=== PATIENT | female | born 1985 | race Caucasian/White ===

== ENCOUNTER 2022-08-15 02:12 | Inpatient (IN) | payer MEDICAID ==
[~2022-08-15] VITALS: Ht 157.5 cm; Wt 49.0 kg
[2022-08-15] MEDS ORDERED: SODIUM CHLORIDE 0.9% 1,000 ML IV ONE ×2 (02:45→13:30)
[2022-08-15] MEDS ORDERED: PIPERACILLIN/TAZ 3.375G PREMIX 50 ML IV ONE (02:45)
[2022-08-15] MEDS ORDERED: VANCOMYCIN 1G PREMIX 200 ML IV ONE (02:45)
[2022-08-15 03:29] LABS: CLARITY URINE TURBID (CLEAR); COLOR URINE YELLOW (YELLOW); KETONES URINE TRACE (NEGATIVE); LEUKOCYTE ESTERASE URINE 3+ (NEGATIVE); NITRITE URINE NEGATIVE (NEGATIVE); OCCULT BLOOD URINE 3+ (NEGATIVE); PROTEIN URINE 2+ (NEGATIVE)
[2022-08-15 03:34] LABS: HEMATOCRIT. 37.3 % (36.0-48.0); HEMOGLOBIN. 10.7 g/dL (12.0-16.0); MEAN CORPUSCULAR HEMOGLOBIN 24.8 pg (28.0-32.0); MEAN PLATELET VOLUME 5.9 fl (7.4-10.4); PLATELET 533 x1000/uL (130-400); RED BLOOD CELL COUNT 4.33 mill/uL (4.2-5.4); RED CELL DISTRIBUTION WIDTH 21.2 % (11.6-14.6)
[2022-08-15 03:42] LABS: INR 1.2; PROTHROMBIN TIME 12.9 sec (9.6-11.0)
[2022-08-15 03:49] LABS: *AMPHETAMINES SCREEN URINE NEGATIVE (NEGATIVE); *BARBITURATES SCREEN URINE NEGATIVE (NEGATIVE); *BENZODIAZEPINES SCREEN URINE NEGATIVE (NEGATIVE); *COCAINE SCREEN URINE NEGATIVE (NEGATIVE); CANNABINOID URINE SCREEN NEGATIVE (NEGATIVE); METHADONE URINE SCREEN NEGATIVE (NEGATIVE); PHENCYCLIDINE URINE SCREEN NEGATIVE (NEGATIVE)
[2022-08-15 03:50] LABS: OPIATES URINE SCREEN PRESUMTIVE POSITIVE (NEGATIVE)
[2022-08-15] MEDS ORDERED: SODIUM CHLORIDE 0.9% 1000ML BAG (SEPSIS BOLUS) IV ONE ×2 (04:00→12:45)
[2022-08-15] MEDS ORDERED: KETOROLAC 15MG/ML VIAL IV ONE (04:00)
[2022-08-15 04:06] LABS: CHLORIDE 103 mEq/L (98-107)
[2022-08-15 04:15] LABS: ETHANOL BLOOD < 10 mg/dL
[2022-08-15 06:16] LABS: PLATELET ESTIMATE INCREASED
[2022-08-15] MEDS ORDERED: ONDANSETRON HCL 4MG/2ML INJ IV PRN (07:30)
[2022-08-15] MEDS ORDERED: ACETAMINOPHEN 325MG TABLET PO PRN ×2 (12:45)
[2022-08-15] MEDS ORDERED: IPRATROPIUM/ALBUTEROL 0.5-3(2.5)MG/3ML NEB HHN PRN (12:45)
[2022-08-15] MEDS ORDERED: NOREPINEPHRINE 32 MG in DEXT 5% WATER 218 ML IV PRN (12:45)
[2022-08-15] MEDS ORDERED: DOCUSATE SODIUM 100MG CAPSULE PO PRN (12:45)
[2022-08-15] MEDS ORDERED: LORAZEPAM 0.5MG TABLET PO PRN (12:45)
[2022-08-15] MEDS ORDERED: CLONIDINE 0.1MG TABLET PO PRN (12:45)
[2022-08-15] MEDS ORDERED: SODIUM CHLORIDE 0.9% 1,000 ML IV SCH (12:45)
[2022-08-15] MEDS: HYDROCODONE/ACETAMINOPHEN 5/325MG TABLET PO PRN ×2 (13:14→19:43)
[2022-08-15] MEDS ORDERED: ALBUMIN HUMAN 12.5G/250ML (5%) IV PRN (13:45)
[2022-08-15] MEDS ORDERED: PIPERACILLIN/TAZOBACTAM 3.375 G in DEXTROSE 5% WATER 50 ML IV SCH (14:00)
[2022-08-15 16:57] VITALS: BP 114/69
[2022-08-15 17:06] VITALS: BP 104/72
[2022-08-15 18:00] VITALS: BP 114/60
[2022-08-15 20:00] VITALS: BP 103/64
[2022-08-15] MEDS: SODIUM BICARBONATE 150 MEQ in DEXTROSE 5% WATER 1,000 ML IV SCH (21:57)
[2022-08-15 22:00] VITALS: BP 96/51
[2022-08-16] VITALS (15 sets, daily range): BP systolic 80–119; BP diastolic 45–65
[2022-08-16] MEDS: HYDROCODONE/ACETAMINOPHEN 5/325MG TABLET PO PRN ×4 (01:23→23:39)
[2022-08-16] MEDS ORDERED: VANCOMYCIN 1G PREMIX 200 ML IV SCH (05:00)
[2022-08-16 05:20] LABS: CHLORIDE 106 mEq/L (98-107)
[2022-08-16 05:28] LABS: CREATINE KINASE 10 IU/L (26-192)
[2022-08-16 05:40] LABS: HEPATITIS B SURFACE ANTIGEN NEGATIVE
[2022-08-16] MEDS: PIPERACILLIN/TAZOBACTAM 3.375 G in DEXTROSE 5% WATER 50 ML IV SCH ×3 (08:08→22:12)
[2022-08-16] MEDS ORDERED: KCL 20MEQ/100ML PREMIX 100 ML IV SCH (09:00)
[2022-08-16 09:09] LABS: BASOPHILS % 0.2 % (0.0-2.0); EOSINOPHILS % 1.4 % (0.0-5.0); HEMATOCRIT. 25.2 % (36.0-48.0); LYMPHOCYTES % 8.5 % (20.0-50.0); MEAN CORPUSCULAR HEMOGLOBIN 25.2 pg (28.0-32.0); MEAN CORPUSCULAR VOLUME 79.7 fL (81.0-99.0); MEAN PLATELET VOLUME 5.9 fl (7.4-10.4); MONOCYTES % 2.4 % (2.0-8.0); NEUTROPHILS % 87.5 % (40.0-76.0); PLATELET 403 x1000/uL (130-400); RED BLOOD CELL COUNT 3.17 mill/uL (4.2-5.4); RED CELL DISTRIBUTION WIDTH 20.1 % (11.6-14.6)
[2022-08-16 09:30] LABS: CREATINE KINASE 11 IU/L (26-192)
[2022-08-16] MEDS: POLYETHYLENE GLYCOL 3350 (17GM) 1 DOSE PACK PO SCH (10:47)
[2022-08-16] MEDS: MIDODRINE HCL 5MG TABLET PO SCH ×3 (10:47→17:33)
[2022-08-16 11:32] LABS: BG BASE EXCESS -3.5 mmol/L (-2.0-2.0); BG CARBOXYHEMOGLOBIN 0.4 % (0.5-1.5); BG DEOXYHEMOGLOBIN 1.8 % (0.0-5.0); BG FRACTION INSPIRED OXYGEN 28; BG HCO3 ACT 19.7 mmol/L (22.0-26.0); BG METHEMOGLOBIN 0.3 % (0.0-1.5); BG OXYGEN SATURATION 98.2 % (92.0-98.5); BG OXYHEMOGLOBIN 97.5 % (94.0-97.0); BG PCO2 28.7 mmHg (35.0-45.0); BG PH 7.455 (7.350-7.450); BG PO2 113.5 mmHg (75.0-100.0); BG SAMPLE SITE LEFT RADIAL; BG TOTAL HEMOGLOBIN 8.6 g/dL (12.0-18.0); BG VENT MODE NASAL CANNULA
[2022-08-16] MEDS ORDERED: NALOXONE HCL 0.4MG/ML VIAL IV PRN (16:15)
[2022-08-16] MEDS: SODIUM BICARBONATE 150 MEQ in DEXTROSE 5% WATER 1,000 ML IV SCH (17:33)
[2022-08-17] VITALS (17 sets, daily range): BP systolic 76–101; BP diastolic 44–68
[2022-08-17 06:22] LABS: BASOPHILS % 0.3 % (0.0-2.0); EOSINOPHILS % 0.7 % (0.0-5.0); HEMATOCRIT. 22.6 % (36.0-48.0); HEMOGLOBIN. 7.4 g/dL (12.0-16.0); LYMPHOCYTES % 8.4 % (20.0-50.0); MEAN CORPUSCULAR HEMOGLOBIN 25.6 pg (28.0-32.0); MEAN CORPUSCULAR VOLUME 78.1 fL (81.0-99.0); MEAN PLATELET VOLUME 6.1 fl (7.4-10.4); MONOCYTES % 2.9 % (2.0-8.0); NEUTROPHILS % 87.7 % (40.0-76.0); PLATELET 385 x1000/uL (130-400); RED CELL DISTRIBUTION WIDTH 20.3 % (11.6-14.6)
[2022-08-17] MEDS: PIPERACILLIN/TAZOBACTAM 3.375 G in DEXTROSE 5% WATER 50 ML IV SCH ×3 (06:54→21:40)
[2022-08-17 08:08] LABS: HIV SCREEN 4G Non Reactive (Non Reactive)
[2022-08-17] MEDS: POLYETHYLENE GLYCOL 3350 (17GM) 1 DOSE PACK PO SCH (08:14)
[2022-08-17] MEDS: HYDROCODONE/ACETAMINOPHEN 5/325MG TABLET PO PRN ×2 (08:14→17:30)
[2022-08-17] MEDS: MIDODRINE HCL 5MG TABLET PO SCH ×3 (08:14→17:16)
[2022-08-17 08:15] LABS: PHOSPHORUS 4.2 mg/dL (2.5-4.9)
[2022-08-17] MEDS: ONDANSETRON HCL 4MG/2ML INJ IV PRN (08:17)
[2022-08-17] MEDS ORDERED: KCL 20MEQ/100ML PREMIX 100 ML IV NR (08:30)
[2022-08-17] MEDS ORDERED: VANCOMYCIN 750MG PREMIX 150 ML IV SCH (09:00)
[2022-08-17] MEDS: DEXT 5%/0.9% NACL 1,000 ML IV SCH ×2 (10:27→21:40)
[2022-08-17 16:21] LABS: HEMOGLOBIN 7.2 g/dL (12.0-16.0); MEAN CORPUSCULAR HEMOGLOBIN 24.5 pg (28.0-32.0); MEAN CORPUSCULAR VOLUME 77.8 fL (81.0-99.0); PLATELET 355 x1000/uL (130-400); RED BLOOD CELL COUNT 2.95 mill/uL (4.2-5.4); RED CELL DISTRIBUTION WIDTH 20.3 % (11.6-14.6)
[2022-08-17 16:37] LABS: HCG SCREEN NEGATIVE
[2022-08-17] MEDS: LINEZOLID 600 MG PREMIX 300 ML IV SCH (21:42)
[2022-08-18] VITALS (11 sets, daily range): BP systolic 85–107; BP diastolic 46–65
[2022-08-18] MEDS: ONDANSETRON HCL 4MG/2ML INJ IV PRN ×4 (01:32→21:28)
[2022-08-18] MEDS: PIPERACILLIN/TAZOBACTAM 3.375 G in DEXTROSE 5% WATER 50 ML IV SCH ×3 (05:54→21:03)
[2022-08-18 06:37] LABS: PHOSPHORUS 3.8 mg/dL (2.5-4.9)
[2022-08-18 06:47] LABS: HEMATOCRIT. 27.2 % (36.0-48.0); HEMOGLOBIN. 8.3 g/dL (12.0-16.0); MEAN CORPUSCULAR HEMOGLOBIN 25.4 pg (28.0-32.0); MEAN CORPUSCULAR VOLUME 83.3 fL (81.0-99.0); MEAN PLATELET VOLUME 6.5 fl (7.4-10.4); PLATELET 358 x1000/uL (130-400); RED BLOOD CELL COUNT 3.26 mill/uL (4.2-5.4); RED CELL DISTRIBUTION WIDTH 20.7 % (11.6-14.6)
[2022-08-18] MEDS: HYDROCODONE/ACETAMINOPHEN 5/325MG TABLET PO PRN ×3 (07:21→21:15)
[2022-08-18] MEDS: POLYETHYLENE GLYCOL 3350 (17GM) 1 DOSE PACK PO SCH (08:23)
[2022-08-18] MEDS: MIDODRINE HCL 5MG TABLET PO SCH ×2 (08:23→16:06)
[2022-08-18] MEDS: LINEZOLID 600 MG PREMIX 300 ML IV SCH ×2 (09:30→21:03)
[2022-08-18] MEDS ORDERED: MAGNESIUM 2 G PREMIX 50 ML IV NR (10:00)
[2022-08-18] MEDS: DEXT 5%/0.9% NACL 1,000 ML IV SCH (11:30)
[2022-08-18] MEDS: MEGESTROL ACETATE 40MG TABLET PO SCH ×2 (11:41→16:05)
[2022-08-18] MEDS ORDERED: CITRIC ACID/SODIUM CITRATE SOLN 30ML UDC PO SCH (13:00)
[2022-08-18 13:21] LABS: PLATELET ESTIMATE NORMAL
[2022-08-18] MEDS: SODIUM BICARBONATE 650 MG TABLET PO SCH (17:00)
[2022-08-18] MEDS ORDERED: CITRIC ACID/SODIUM CITRATE SOLN 30ML UDC PO NR (17:30)
[2022-08-19] VITALS (9 sets, daily range): BP systolic 89–113; BP diastolic 58–74
[2022-08-19] MEDS: DEXT 5%/0.9% NACL 1,000 ML IV SCH ×3 (00:40→21:12)
[2022-08-19] MEDS: MIDODRINE HCL 5MG TABLET PO SCH ×3 (01:00→17:00)
[2022-08-19] MEDS: HYDROCODONE/ACETAMINOPHEN 5/325MG TABLET PO PRN ×4 (04:27→23:49)
[2022-08-19] MEDS: ONDANSETRON HCL 4MG/2ML INJ IV PRN ×5 (05:00→23:45)
[2022-08-19] MEDS: PIPERACILLIN/TAZOBACTAM 3.375 G in DEXTROSE 5% WATER 50 ML IV SCH ×3 (05:29→21:08)
[2022-08-19] MEDS: POLYETHYLENE GLYCOL 3350 (17GM) 1 DOSE PACK PO SCH (08:15)
[2022-08-19] MEDS: MEGESTROL ACETATE 40MG TABLET PO SCH ×2 (08:25→17:00)
[2022-08-19] MEDS: LINEZOLID 600 MG PREMIX 300 ML IV SCH ×2 (08:25→21:07)
[2022-08-19] MEDS: SODIUM BICARBONATE 650 MG TABLET PO SCH ×3 (08:25→17:00)
[2022-08-19 12:29] LABS: BASOPHILS % 0.3 % (0.0-2.0); EOSINOPHILS % 1.7 % (0.0-5.0); HEMATOCRIT. 22.1 % (36.0-48.0); LYMPHOCYTES % 8.9 % (20.0-50.0); MEAN CORPUSCULAR HEMOGLOBIN 25.1 pg (28.0-32.0); MEAN CORPUSCULAR VOLUME 81.2 fL (81.0-99.0); MEAN PLATELET VOLUME 6.6 fl (7.4-10.4); MONOCYTES % 9.6 % (2.0-8.0); NEUTROPHILS % 79.5 % (40.0-76.0); PLATELET 423 x1000/uL (130-400); RED BLOOD CELL COUNT 2.72 mill/uL (4.2-5.4); RED CELL DISTRIBUTION WIDTH 20.4 % (11.6-14.6)
[2022-08-19 12:48] LABS: PHOSPHORUS 3.5 mg/dL (2.5-4.9)
[2022-08-19 13:27] LABS: HEMOGLOBIN. 6.8 g/dL (12.0-16.0)
[2022-08-20] VITALS (11 sets, daily range): BP systolic 99–119; BP diastolic 46–77
[2022-08-20] MEDS: MIDODRINE HCL 5MG TABLET PO SCH ×2 (00:11→09:00)
[2022-08-20] MEDS: ONDANSETRON HCL 4MG/2ML INJ IV PRN (05:56)
[2022-08-20] MEDS: HYDROCODONE/ACETAMINOPHEN 5/325MG TABLET PO PRN (05:56)
[2022-08-20] MEDS: PIPERACILLIN/TAZOBACTAM 3.375 G in DEXTROSE 5% WATER 50 ML IV SCH (05:58)
[2022-08-20] MEDS ORDERED: LIDOCAINE HCL/PF 1% 10 MG/ML 5ML VIAL ONE (08:45)
[2022-08-20] MEDS: SODIUM BICARBONATE 650 MG TABLET PO SCH (09:00)
[2022-08-20] MEDS: POLYETHYLENE GLYCOL 3350 (17GM) 1 DOSE PACK PO SCH (09:00)
[2022-08-20] MEDS: MEGESTROL ACETATE 40MG TABLET PO SCH (09:00)
[2022-08-20] MEDS: LINEZOLID 600 MG PREMIX 300 ML IV SCH (09:10)
[2022-08-20 10:54] LABS: HEMATOCRIT. 26.3 % (36.0-48.0); HEMOGLOBIN. 8.6 g/dL (12.0-16.0); MEAN CORPUSCULAR HEMOGLOBIN 26.5 pg (28.0-32.0); MEAN CORPUSCULAR VOLUME 81.5 fL (81.0-99.0); MEAN PLATELET VOLUME 6.3 fl (7.4-10.4); PLATELET 451 x1000/uL (130-400); RED BLOOD CELL COUNT 3.23 mill/uL (4.2-5.4); RED CELL DISTRIBUTION WIDTH 20.1 % (11.6-14.6)
[2022-08-20 15:20] LABS: PLATELET ESTIMATE SLIGHTLY INCREASED
== END 2022-08-20 11:00 | disposition short-term general hospital (02) | DRG 720 ==
LOC: ER 02:12 → 5EST 05:02 → EDBEDREQ 05:06 → CANRESERV 12:23 → ENRESERV 12:23 → CANRESERV 14:05 → ENRESERV 14:05
PROVIDERS: ADMIT Internal Medicine; ATTEND Internal Medicine
PROC: 5A0935A Assistance with Respiratory Ventilation, Less than 24 Consecutive Hours, High Flow/Velocity Cannula (ICD-10-PCS; 2022-08-18)
PROC: 30233N1 Transfusion of Nonautologous Red Blood Cells into Peripheral Vein, Percutaneous Approach (ICD-10-PCS; principal; 2022-08-20)
DX: A41.81 Sepsis due to Enterococcus (principal); R65.21 Severe sepsis with septic shock; K75.0 Abscess of liver; E43 Unspecified severe protein-calorie malnutrition; N17.9 Acute kidney failure, unspecified; J18.9 Pneumonia, unspecified organism; E88.09 Other disorders of plasma-protein metabolism, not elsewhere classified; T83.123A Displacement of other urinary stents, initial encounter; E86.9 Volume depletion, unspecified; D64.9 Anemia, unspecified; N18.9 Chronic kidney disease, unspecified; K80.20 Calculus of gallbladder without cholecystitis without obstruction; E87.6 Hypokalemia; Z20.822 Contact with and (suspected) exposure to COVID-19; N39.0 Urinary tract infection, site not specified; N20.0 Calculus of kidney; I07.1 Rheumatic tricuspid insufficiency; Y83.8 Other surgical procedures as the cause of abnormal reaction of the patient, or of later complication, without mention of misadventure at the time of the procedure; N13.9 Obstructive and reflux uropathy, unspecified; F15.10 Other stimulant abuse, uncomplicated; I12.9 Hypertensive chronic kidney disease with stage 1 through stage 4 chronic kidney disease, or unspecified chronic kidney disease; K56.41 Fecal impaction; Z59.00 Homelessness unspecified; Z68.1 Body mass index [BMI] 19.9 or less, adult; Y92.89 Other specified places as the place of occurrence of the external cause
CPT/HCPCS: 36415; 36600; 71045; 74176; 76700; 80048; 80053; 80305; 80320; 81003; 82270; 82375; 82550; 82805; 83605; 83735; 84100; 84145; 84484; 84703; 85025; 85027; 85044; 86705; 86709; 86803; 86850; 86900; 86920; 87077; 87186; 87340; 87389; 87426; 93005; 93306; 99291; A6261; J1885; J2020; J2405; J2543; J3370; J3475; J3480; J3490; J7030; J7042; J7060; J7070; P9016; G0480